=== PATIENT | male | born 1950 | race Caucasian/White ===

== ENCOUNTER → 2016-06-25 | Outpatient (CLI) | payer MEDICARE, OTHER | LOC: OD 08:47 | PROVIDERS: ATTEND Surgery | DX: R07.9 Chest pain, unspecified (principal) | CPT/HCPCS: 71020 ==

== ENCOUNTER 2017-03-06 09:31 | Day surgery (SDC) | payer MEDICARE, OTHER ==
--- NOTE | 2017-02-13 13:48 | HISTORY AND PHYSICAL E ---
History and Physical NAME: VITALY BERGER : 1950 AGE: 66Y ADMITTED: 03/06/2017 ROOM: CHIEF COMPLAINT: Colon screening. HISTORY: Review of records shows as follows: The patient presented at this time for colon screening. The patient is known to me as far as back in 1994. Upper scope at that time for reflux showing mild esophagitis, gastritis, duodenitis. At this time, patient for colon screening. Upper GI and gallbladder ultrasound negative in 1993. The patient presented at this time for colon screening. Upper scope in 1998 again mild esophagitis. At this time, patient for colon exam. The 2005 colonoscopy shows sigmoid diverticulosis, 2 mm rectal polyp. Patient, at that time, referred by Dr. Mena. Colonoscopy in 2011 shows as follows: Patient did have history of polyps, diverticulosis. He did have surgery on his bladder, appendectomy. GI: Reflux, colon screening. MEDICATIONS: 1. Baby aspirin. 2. Ibuprofen. 3. Lipitor. FAMILY HISTORY: His father of lung cancer. Father had cardiac disease. His mom is alive. Mom has Alzheimer's. SOCIAL HISTORY: . SURGICAL HISTORY: 1. Appendectomy. 2. Left hip surgery, right hip. REVIEW OF SYSTEMS: ONCOLOGIC/HEMATOLOGIC: CA of the bladder. PHYSICAL EXAMINATION: VITAL SIGNS: Blood pressure is 120/70, pulse 80, respirations 20, temp is 98. HEENT: Normal. ABDOMEN: Soft. NEUROLOGIC: Negative. CONCLUSION: Colon screening. PLAN: Colonoscopy. DICTATING PHYSICIAN: KALYAN OLVE M.D. [id number] PHY#: [id number] ID: [id number] JOB#: [id number] ACCT: [id number] cc:KALYAN LOVE M.D. >
[~2017-03-06 09:31] MED LIST: EPINEPHRINE INJ 1 MG/10 ML DISP.SYRIN ONE; FENTANYL CITRATE INJ/PF 100 MCG/2 ML AMPUL ONE; FLUMAZENIL INJ 0.5 MG/5 ML VIAL ONE; GLUCAGON,HUMAN RECOMB 1 MG INJ ONE; GLYCOPYRROLATE INJ 0.4 MG/2 ML VIAL ONE; LIDOCAINE 2% JELLY 30 ML TUBE ONE; NALOXONE HCL INJ/PF 0.4 MG/1 ML SDV ONE; ONDANSETRON HCL INJ/PF 4 MG/2 ML SDV ONE
[2017-03-06] MEDS: MIDAZOLAM 2 MG/2 ML INJ ONE ×2 (10:05→10:09)
[2017-03-06 11:17] VITALS: BP 110/54
[2017-03-06 11:39] LABS: ABSOLUTE EOSINOPHILS # (AUTO) 0.1 10^3/uL (0.0-0.6); ABSOLUTE LYMPHOCYTES (AUTO) 1.1 10^3/uL (0.5-4.7); ABSOLUTE MONOCYTES (AUTO) 0.9 10^3/uL (0.1-1.4); ABSOLUTE NEUT (AUTO) 9.2 10^3/uL (1.7-8.2); BASOPHILS % (AUTO) 0.3 % (0-2); EOSINOPHILS % (AUTO) 0.8 % (0-6); HEMATOCRIT 39.7 % (37.9-51.0); HEMOGLOBIN 13.9 g/dL (13.5-17.0); LYMPHOCYTES % (AUTO) 9.4 % (13-45); MEAN CORPUSCULAR HEMOGLOBIN 34.9 pg (27.0-33.4); MEAN CORPUSCULAR HGB CONC 34.9 g/dL (32.0-36.0); MEAN CORPUSCULAR VOLUME 100 fl (80-97); MONOCYTES % (AUTO) 7.9 % (3-13); RED BLOOD COUNT 3.98 10^6/uL (4.35-5.55); RED CELL DISTRIBUTION WIDTH 13.4 % (11.5-14.0); SEGMENTED NEUTROPHILS % (AUTO) 81.6 % (42-78); WHITE BLOOD COUNT 11.3 10^3/uL (4.0-10.5)
--- NOTE | 2017-03-06 12:01 | OPERATIVE REPORT E ---
Operative Report NAME: VITALY BERGER : 1950 AGE: 66Y DATE OF SURGERY: 03/06/2017 ROOM: PREOPERATIVE DIAGNOSIS: Colon screening. POSTOPERATIVE DIAGNOSES: 1. A 1 mm diminutive rectal polyp, small to biopsy. 2. Sigmoid descending diverticulosis, severe. OPERATION: Colonoscopy. SURGEON: KALYAN LOVE M.D. ANESTHESIA: Versed 2 and fentanyl 100. TISSUE REMOVED OR ALTERED: None. PROCEDURE: Rectal exam shows no hemorrhoids. Rectum shows 1 mm diminutive polyp too small to biopsy or sample. A 1 mm benign hyperplastic polyp close to the anal verge too small to biopsy. Sigmoid diverticulosis severe. Descending colon diverticulosis. Transverse colon normal. Ascending colon normal. Cecum normal. Scope withdrawn from cecum, ascending, transverse, descending, sigmoid all the way to the rectum. CONCLUSION: 1. Diminutive anal polyp, small to biopsy, 1 mm. 2. Sigmoid descending colon diverticulosis. PLAN: Consider followup colonoscopy 3 years with better prep secondary to diverticulosis. No evidence of malignancy. No bleeding. Soft low residue diet for 3 days. Patient to continue all medications except aspirin and nonsteroidal, hold for today. I will obtain baseline CBC. Patient to see us in the office in the next few days. FINAL DIAGNOSES: 1. Diverticulosis sigmoid descending colon. 2. Small diminutive polyp rectum. DICTATING PHYSICIAN: KALYAN LOVE M.D. [id number] PHY#: [id number] ID: [id number] JOB#: [id number] ACCT: [id number] cc:KALYAN LOVE M.D. >
--- NOTE | 2017-03-06 12:02 | DISCHARGE SUMMARY E ---
Discharge Summary NAME: VITALY BERGER : 1950 AGE: 66Y ADMITTED: 03/06/2017 DISCHARGED: 03/06/2017 PROCEDURE: Colonoscopy. FINAL DIAGNOSIS: A 1 mm, dimunitive polyp rectum, small , sigmoid descending diverticulosis, severe. HISTORY: Patient was seen 10 years ago back in 1994, and he did have colonoscopy 2011 as well. Today's colon shows diminutive polyp anal area and sigmoid descending colon diverticulosis. DISCHARGE PLAN: Soft, low-residue diet 2 days. Baseline CBC. Hold aspirin and nonsteroidal 2 days. Consider followup colonoscopy 5 years. DICTATING PHYSICIAN: KALYAN LOVE M.D. [id number] PHY#: [id number] ID: [id number] JOB#: [id number] ACCT: [id number] cc:KALYAN LOVE M.D. >
== END 2017-03-06 11:25 | disposition home or self-care (01) ==
LOC: END 09:31
PROVIDERS: ATTEND Specialist
PROC: 0DJD8ZZ Inspection of Lower Intestinal Tract, Via Natural or Artificial Opening Endoscopic (ICD-10-PCS; principal; 2017-03-06 10:00)
DX: K57.30 Diverticulosis of large intestine without perforation or abscess without bleeding (principal); D12.8 Benign neoplasm of rectum; Z79.82 Long term (current) use of aspirin; Z79.1 Long term (current) use of non-steroidal anti-inflammatories (NSAID); Z79.899 Other long term (current) drug therapy
CPT/HCPCS: 45378; 36415; 85025; J2250; J3010; J1610; J2405; J0171; J2310; J3490

== ENCOUNTER → 2019-05-04 | Outpatient (CLI) | payer MEDICARE, OTHER ==
--- NOTE | 2019-05-05 19:48 | DRAGON STRESS TEST REPORT ---
ATTEMPTED EKG EXERCISE TREADMILL STRESS TEST The patient with a history of chest pain was sent for exercise treadmill stress test. The patient's EKG shows sinus bradycardia within normal limits. The patient for a few minutes and attained a heart rate of 96 bpm she is 63% of maximum predicted heart rate. The patient was unable to exercise further due to severe back pain. Hence the stress test was terminated. NONDIAGNOSTIC x-ray is treadmill stress test. RECOMMENDATION: Would recommend patient have an IV Lexiscan Cardiolite stress test if clinically indicated. This was discussed with her Ms. Natalee Neely PA-C at Dr. Cartwright's office. She was scheduled for IV Lexiscan Cardiolite stress test. RICHARD
== END ==
LOC: SP 08:05
PROVIDERS: ATTEND Physician Assistant
DX: R07.9 Chest pain, unspecified (principal); R10.10 Upper abdominal pain, unspecified
CPT/HCPCS: 93017

== ENCOUNTER 2019-06-12 07:28 | Day surgery (SDC) | payer MEDICARE, OTHER ==
[2019-06-08 10:56] LABS: ANION GAP 7 (5-19); BLOOD UREA NITROGEN 14 mg/dL (7-20); CARBON DIOXIDE 33 mmol/L (22-30); CHLORIDE 100 mmol/L (98-107); GLUCOSE 105 mg/dL (75-110); POTASSIUM 4.1 mmol/L (3.6-5.0)
[2019-06-08 11:15] LABS: ABSOLUTE EOSINOPHILS # (AUTO) 0.1 10^3/uL (0.0-0.6); ABSOLUTE LYMPHOCYTES (AUTO) 1.7 10^3/uL (0.5-4.7); ABSOLUTE MONOCYTES (AUTO) 0.9 10^3/uL (0.1-1.4); ABSOLUTE NEUT (AUTO) 3.5 10^3/uL (1.7-8.2); BASOPHILS % (AUTO) 0.8 % (0-2); EOSINOPHILS % (AUTO) 1.6 % (0-6); HEMATOCRIT 38.9 % (37.9-51.0); HEMOGLOBIN 13.9 g/dL (13.5-17.0); LYMPHOCYTES % (AUTO) 26.9 % (13-45); MEAN CORPUSCULAR HEMOGLOBIN 34.7 pg (27.0-33.4); MEAN CORPUSCULAR HGB CONC 35.7 g/dL (32.0-36.0); MEAN CORPUSCULAR VOLUME 97 fl (80-97); MONOCYTES % (AUTO) 13.9 % (3-13); PLATELET COUNT 204 10^3/uL (150-450); SEGMENTED NEUTROPHILS % (AUTO) 56.8 % (42-78); TOTAL CELLS COUNTED % (AUTO) 100 %; WHITE BLOOD COUNT 6.1 10^3/uL (4.0-10.5)
--- NOTE | 2019-06-08 13:29 | EKG REPORT ---
SEVERITY:- NORMAL ECG - SINUS BRADYCARDIA 54/MIN. : Confirmed by: Bryan Prieto MD 08-Jun-2019 13:29:39
[~2019-06-12 07:28] MED LIST changes: +ACETAMINOPHEN 325 MG TABLET PO PRN; +CEFOXITIN SODIUM 2 GM in DEXTROSE 5%-WATER 100 ML IV PRN; +DEXAMETHASONE SOD PHOSPHATE INJ 4 MG/1 ML VIAL ONE; -EPINEPHRINE INJ 1 MG/10 ML DISP.SYRIN ONE; -FLUMAZENIL INJ 0.5 MG/5 ML VIAL ONE; -GLUCAGON,HUMAN RECOMB 1 MG INJ ONE; -GLYCOPYRROLATE INJ 0.4 MG/2 ML VIAL ONE; +IBUPROFEN 800 MG in NORMAL SALINE 250 ML IV PRN; +LACTATED RINGERS 1000 ML IV PRN; +LIDOCAINE 0.5% INJ-PF (5 MG/ML) 50 ML SDV SUBCUT PRN; -LIDOCAINE 2% JELLY 30 ML TUBE ONE; +MIDAZOLAM 2 MG/2 ML INJ ONE; -NALOXONE HCL INJ/PF 0.4 MG/1 ML SDV ONE; +PROPOFOL INJ 200 MG/20 ML VIAL IV ONE; +SUGAMMADEX SODIUM 200 MG/2 ML SDV IV ONE
[2019-06-12] MEDS ORDERED: ACETAMINOPHEN 325 MG TABLET ONE (07:49)
[2019-06-12] MEDS ORDERED: BUPIVACAINE HCL 0.25 % INJ/PF (2.5 MG/1 ML) 30 ML VIAL ONE (09:36)
[2019-06-12] MEDS ORDERED: SUCCINYLCHOLINE CHLORIDE INJ 200 MG/10 ML VIAL ONE (09:41)
[2019-06-12] MEDS ORDERED: ROCURONIUM BROMIDE INJ 50 MG/5 ML VIAL IV ONE (09:41)
[2019-06-12] MEDS ORDERED: BUPIVACAINE HCL 0.25 % INJ/PF (2.5 MG/1 ML) 30 ML VIAL INJ ONE (09:56)
[2019-06-12] MEDS ORDERED: MEPERIDINE HCL/PF INJ 25 MG/1 ML DISP.SYRIN IV PRN (10:22)
[2019-06-12] MEDS ORDERED: PROMETHAZINE HCL INJ 25 MG/1 ML VIAL IV PRN ×2 (10:22)
[2019-06-12] MEDS ORDERED: DIPHENHYDRAMINE HCL 50 MG/ML VIAL IV PRN (10:22)
[2019-06-12] MEDS ORDERED: FENTANYL CITRATE INJ/PF 100 MCG/2 ML AMPUL IV PRN ×3 (10:22)
[2019-06-12] MEDS ORDERED: MORPHINE SULFATE 10 MG/ML INJ IV PRN (10:22)
--- NOTE | 2019-06-12 11:11 | Discharge Summary ---
Discharge Summary (SDC) - Discharge Final Diagnosis: Symptomatic cholelithiasis Date of Surgery: 06/12/19 Discharge Date: 06/12/19 Condition: Stable Forms: ASU Anesthesia D/C Instruction, Discharge POC-Surgical Service Treatment or Instructions: Discharge home. Diet as tolerated. Activity: No lifting greater than 10 pounds x 2 weeks. Follow-up with me in 7 to 10 days. Okay to shower on Saturday. No swimming pools or tub baths x2 weeks. Ibuprofen 800 mg p.o. 3 times daily with meals. [place] 10/325 mg p.o. every 6 hours PRN for pain. Prescriptions: Ibuprofen [Motrin 800 mg Tablet] 800 mg PO MEALS #42 tablet Hydrocodone/Acetaminophen [[place] 10-325 mg Tablet] 1 tab PO Q6HP PRN #15 tablet PRN Reason: For Pain Referrals: BUFFY MARIE MD [ACTIVE STAFF] - 06/23/19 10:45 am Discharge Diet: As Tolerated Respiratory Treatments at Home: Deep Breathing/Coughing, Incentive Spirometer Discharge Activity: No Lifting Over 10 Pounds, No Lifting/Push/Pulling Home Care Assistance: None Needed Report the Following to Your Physician Immediately: Shortness of Breath, Nausea, Vomiting, Increase in Pain, Yellow Skin, Fever over 101 Degrees, Unusual Bleeding, Redness
--- NOTE | 2019-06-12 11:18 | Operative Report ---
Nonrecallable Operative Report DATE OF SURGERY: 06/12/19 PREOPERATIVE DIAGNOSIS: Symptomatic cholelithiasis POSTOPERATIVE DIAGNOSIS: Same as above OPERATION: Laparoscopic cholecystectomy SURGEON: BUFFY MARIE ANESTHESIA: GA TISSUE REMOVED OR ALTERED: Gallbladder COMPLICATIONS: None apparent ESTIMATED BLOOD LOSS: Minimal PROCEDURE: Drains/implants: None. Procedure in detail: After informed consent was obtained, the patient was brought to the operating room and laid in supine position. The area of the abdomen was prepped and draped in a normal sterile fashion. An incision was created in the supraumbilical position. Dissection was carried through the subcutaneous tissues using sharp and blunt dissection. The cicatrix was identified, grasped with a Rosa clamp, retracted upwards. The linea alba fascia was incised sharply, the abdomen was entered sharply. The balloon trocar was inserted, and pneumoperitoneum was achieved. A subxiphoid 5 mm port was placed under direct laparoscopic visualization. 2 more 5 mm ports were placed in the right upper quadrant in similar fashion. Atraumatic graspers were placed through the 5 mm ports. They were then used to retract the gallbladder cephalad and laterally. Dissection was begun in the triangle of [place]. The cystic duct and cystic artery were fully visualized and skeletonized, seeing the liver through the triangle. Once the critical view of safety was obtained, the cystic duct and cystic artery were clipped and cut with laparoscopic instruments. The gallbladder was then removed from the liver using Bovie electrocautery. Gallbladder was placed into an Endo Catch bag, and pulled out through the umbilicus. The camera was reinserted. The hilum was inspected. It is found to be free of any leakage of blood or bile. Once this was confirmed, the abdomen was copiously irrigated and suctioned, until the effluent was clear. The 5 mm trochars were then removed under direct laparoscopic visualization. The supraumbilical trocar was removed, and pneumoperitoneum was relieved. The supraumbilical fascia was then closed using 0 Vicryl suture in ocjtfy-[id number] fashion. The overlying skin was closed in 4-0 Vicryl Rapide suture in subcuticular fashion. Dressings were placed, and the procedure was concluded. All sponge, instrument, and needle counts were correct x2. Condition: Stable.
[2019-06-12] MEDS ORDERED: HYDROCODONE/ACETAMINOPHEN 10-325 MG TABLET PO PRN (11:27)
[2019-06-12 12:36] VITALS: BP 117/61
== END 2019-06-12 12:35 | disposition home or self-care (01) ==
LOC: OROUT 07:28
PROVIDERS: ATTEND Surgery
DX: K80.10 Calculus of gallbladder with chronic cholecystitis without obstruction (principal); Z79.899 Other long term (current) drug therapy; Z85.51 Personal history of malignant neoplasm of bladder; K21.9 Gastro-esophageal reflux disease without esophagitis; I10 Essential (primary) hypertension; Z87.891 Personal history of nicotine dependence
CPT/HCPCS: 93005; 36415 ×2; 84132; 85025; 80048; 88304 ×2; 93010; 47562; A9270; J2250; J3490 ×2; J1100; J3010; J0330; J2405; J7060; J7050; J2704; J1741; J0694; 790